=== PATIENT | female | born 1980 | race African-American/Black ===

== ENCOUNTER 2018-07-01 13:03 | Emergency (ER) | payer OTHER ==
[~2018-07-01] VITALS: Ht 162.6 cm; Wt 81.7 kg
[~2018-07-01 13:03] MED LIST: IBUPROFEN 800800 M1 PO; NAPROSYN500 MG PO; NORCO 5-325 TA1 EACH PO; PENICILLIN VK500 M1 PO; PROZAC 20 MG20 MG PO; TRAMADOL 50 MG50 MG PO
[2018-07-01] MEDS ORDERED: IBUPROFEN 800800 M1 PO (13:26)
[2018-07-01] MEDS ORDERED: NORFLEX100 MG PO (13:52)
[2018-07-01] MEDS ORDERED: NAPROSYN500 MG PO (13:52)
[2018-07-01 14:41] VITALS: BP 120/68
== END 2018-07-01 14:41 | disposition home or self-care (01) ==
LOC: ER 13:03
DX: S16.1XXA Strain of muscle, fascia and tendon at neck level, initial encounter (principal); S39.012A Strain of muscle, fascia and tendon of lower back, initial encounter; F17.210 Nicotine dependence, cigarettes, uncomplicated; V89.2XXA Person injured in unspecified motor-vehicle accident, traffic, initial encounter; Y93.I9 Activity, other involving external motion; Y92.410 Unspecified street and highway as the place of occurrence of the external cause; Y99.8 Other external cause status